=== PATIENT | female | born 1980 | race Caucasian/White ===

== ENCOUNTER 2016-10-15 18:19 | Emergency (ER) | payer MEDICAID ==
--- NOTE | 2016-10-22 15:15 | ER ---
ADMIT: 10/15/2016 RM/LOC: ER [facility] MR#: [id number] [facility] [address] [place] [id number] [place] [address] Emergency Room Report SEX: F AGE: 36 : 1980 DATE: 10/15/2016 ADDENDUM: This patient comes into the ER because last night, she had a lot of tequila. She says she does not remember exactly what happened, but she knows she injured her right knee. It is swollen and difficult for her to bear weight. She also says she has been vomiting today, not able to keep fluids down. On physical exam, she is alert. Her oral mucosa is dry. She has some swelling right below her right knee cap, but she does bear weight. She was given a Zofran, which helped with her nausea and she was able to keep fluids down here in the emergency room. Her x-ray was negative. She was placed in a postop knee splint. She is to follow up with her primary, and I sent her home with a prescription for tramadol and Zofran. Please see my T-sheet. EMMA Bell / Wang Palomino MD / elodial JOB #: [id number] CC: Billy Greene MD, Attending Physician Dayday Harmon MD, Family Physician
== END 2016-10-15 19:55 | disposition home or self-care (01) ==
LOC: ER 18:19
PROC: 2W3QX1Z Immobilization of Right Lower Leg using Splint (ICD-10-PCS; principal; 2016-10-15)
DX: M25.561 Pain in right knee (principal); R11.10 Vomiting, unspecified; F17.210 Nicotine dependence, cigarettes, uncomplicated; F41.9 Anxiety disorder, unspecified; F31.9 Bipolar disorder, unspecified; Z88.6 Allergy status to analgesic agent; Z98.890 Other specified postprocedural states; Z79.899 Other long term (current) drug therapy